=== PATIENT | female | born 1995 ===

== ENCOUNTER 2018-10-10 07:23 | Inpatient (IN) ==
[2018-10-10] MEDS ORDERED: MEPERIDINE 50 MG/1 ML VIAL IV PRN (07:53)
[2018-10-10] MEDS ORDERED: ONDANSETRON 4 MG/2 ML VIAL IV PRN (07:53)
[2018-10-10 08:10] LABS: Basophils % 0.2 % (0.0-0.8); Eosinophils # 0.1 10*3/uL (0.0-0.87); Eosinophils % 0.7 % (0.00-10.9); Hematocrit 34.1 VOL% (35.7-47.0); Immature Granulocytes % 0.7 %; Immature Granulocytes Absolute 0.06 #; Lymphocytes # 1.6 10*3/uL (1.4-4.0); Lymphocytes % 19.2 % (21.3-54.2); Mean Corpuscular HGB Conc 32.3 GM/DL (32-36); Mean Corpuscular Hemoglobin 26 PG (27-34); Mean Corpuscular Volume 80.6 FL (87-102); Mean Platelet Volume 11.2 FL (9.6-12.0); Monocytes # 0.4 10*3/uL (0.11-0.8); Neutrophils # 6.1 10*3/uL (1.4-7.4); Neutrophils % 74.2 % (38.7-73.9); Platelet Count 191 T/CUMM (130-400); Red Blood Count 4.23 MC/CUMM (3.8-5.5); Red Cell Distribution Width 14.1 % (9.3-17.3); White Blood Count 8.2 T/CUMM (4-12)
[2018-10-10] MEDS ORDERED: DINOPROSTONE VAG GEL 10 MG SYRINGE VAG ONE (08:31)
[2018-10-10 08:45] LABS: Alanine Aminotransferase 13 U/L (13-56); Albumin 2.5 G/DL (3.4-5.0); Alkaline Phosphatase 215 U/L (45-117); Aspartate Amino Transferase 13 U/L (0-37); Bilirubin,Total < 0.39 MG/DL (0.2-1.0); Blood Urea Nitrogen 9 MG/DL (7-18); Calcium 8.1 MG/DL (8.5-10.1); Glucose 91 MG/DL (74-106); Osmolality,Calculated 277.4 MOS/KG (273-304); Potassium 3.7 MMOL/L (3.5-5.1); Sodium 140 MMOL/L (136-145); Total Protein 7.3 G/DL (6.4-8.3); Uric Acid 3.5 MG/DL (2.6-6.0)
[2018-10-10] MEDS: LACTATED RINGERS 1,000 ML IV SCH ×2 (08:57→09:47)
[2018-10-10] MEDS ORDERED: ACETAMINOPHEN 325 MG TABLET PO ONE (09:10)
[2018-10-10] MEDS ORDERED: OXYTOCIN/LR 20 UNIT/1,000 ML BAG IV SCH (15:00)
[2018-10-10] MEDS ORDERED: PROMETHAZINE 25 MG/1 ML VIAL IM ONE (17:16)
[2018-10-10] MEDS ORDERED: CITRIC ACID/SODIUM CITRATE 30 ML UDCUP PO ONE (17:16)
[2018-10-10] MEDS ORDERED: ePHEDrine 50 MG/ML AMP IV PRN (17:16)
[2018-10-10] MEDS ORDERED: FAMOTIDINE 20 MG/2 ML VIAL IV ONE (17:16)
[2018-10-10] MEDS ORDERED: diphenhydrAMINE 50 MG/1 ML VIAL IV PRN (17:16)
[2018-10-10] MEDS ORDERED: NALOXONE 0.4 MG/ML VIAL IV PRN (17:16)
[2018-10-10] MEDS ORDERED: hydrOXYzine HCL 25 MG/1 ML VIAL IM PRN (17:16)
[2018-10-10] MEDS: fentaNYL 2 MCG/ROPIV 0.2% EPID 100 ML EPIDURAL SCH (18:10)
[2018-10-10 19:49] LABS: Apearance,Urine Slightly Hazy (Clear); Bilirubin,Urine Negative (Negative); Blood, Urine Negative (Negative); Glucose,Urine (UA) Negative (Negative); Ketones,Urine 20 mg/dL (Negative); Mucus,Urine Few /LPF (Occasional); Nitrite,Urine Negative (Negative); Protein,Urine 30 MG/DL; RBC,Urine <1 /HPF (0-4); Squamous Epithelial Cell,Urine Occasional /HPF (0-10); Urine Color Yellow (Yellow); Urine Specific Gravity 1.025 (1.001-1.035); WBC,Urine 1 /HPF (0-6)
[2018-10-11] MEDS: fentaNYL 2 MCG/ROPIV 0.2% EPID 100 ML EPIDURAL SCH ×3 (01:39→12:55)
[2018-10-11] MEDS: LACTATED RINGERS 1,000 ML IV SCH ×2 (06:01→16:28)
[2018-10-11] MEDS: hydrALAZINE 20 MG/1 ML VIAL IV SCH ×2 (08:48→09:00)
[2018-10-11] MEDS ORDERED: OXYTOCIN/LR 30 UNIT/1,000 ML BAG IV ONE (16:08)
[2018-10-11] MEDS ORDERED: OXYTOCIN 10 UNIT/ML VIAL IM ONE (16:08)
[2018-10-11] MEDS ORDERED: ceFAZolin 3,000 MG in SYRINGE 1 EACH IV ONE (16:11)
[2018-10-11] MEDS ORDERED: MORPHINE 10 MG/10 ML VIAL ONE (16:24)
[2018-10-11] MEDS ORDERED: KETOROLAC 60 MG/2 ML VIAL IM ONE (16:24)
[2018-10-11] MEDS ORDERED: LIDOCAINE MPF 2% /EPI 20 ML VIAL ONE (16:24)
[2018-10-11] MEDS ORDERED: CARBOPROST TROMETHAMINE 250 MCG/ML AMP IM ONE (16:59)
[2018-10-11] MEDS ORDERED: PHENYLEPHRINE 1 MG/10 ML SYRINGE IV ONE (17:45)
[2018-10-11] MEDS ORDERED: guaiFENesin/CODEINE 5 ML LIQUID PO PRN (18:03)
[2018-10-11 18:10] LABS: Cord Arterial Blood HCO3 20.2 MMOL/L
[2018-10-11 18:14] LABS: Cord Venous Blood HCO3 20.4 MMOL/L; Cord Venous Blood PCO2 44.1 MMHG; Cord Venous Blood PO2 20.8
[2018-10-11] MEDS ORDERED: RHO(D) IMMUNE GLOBULIN 300 MCG SYRINGE IM ONE (18:34)
[2018-10-11] MEDS ORDERED: OXYTOCIN/LR 20 UNIT/1,000 ML BAG IV ONE (18:34)
[2018-10-11] MEDS ORDERED: ONDANSETRON 4 MG/2 ML VIAL IV PRN (18:34)
[2018-10-11] MEDS ORDERED: ACETAMINOPHEN 325 MG TABLET PO PRN (18:34)
[2018-10-11] MEDS ORDERED: LACTATED RINGERS 1,000 ML IV SCH (19:00)
[2018-10-11] MEDS ORDERED: diphenhydrAMINE 50 MG/1 ML VIAL IV PRN (21:52)
[2018-10-11] MEDS: FLUTICASONE 50 MCG NASAL SPRAY 16 GM BOTTLE BOTH NARES SCH (22:01)
[2018-10-11] MEDS: DOCUSATE SODIUM 100 MG CAPSULE PO SCH (22:33)
[2018-10-12] MEDS: ceFAZolin 1,000 MG in SYRINGE 1 EACH IV SCH ×2 (00:44→09:05)
[2018-10-12] MEDS ORDERED: hydrOXYzine HCL 25 MG/1 ML VIAL IM PRN (00:45)
[2018-10-12 02:39] LABS: Basophils % 0.2 % (0.0-0.8); Eosinophils % 0.1 % (0.00-10.9); Hematocrit 28.2 VOL% (35.7-47.0); Hemoglobin 8.9 GM/DL (12.0-16.0); Immature Granulocytes % 0.8 %; Immature Granulocytes Absolute 0.07 #; Lymphocytes % 11.6 % (21.3-54.2); Mean Corpuscular HGB Conc 31.6 GM/DL (32-36); Mean Corpuscular Hemoglobin 26 PG (27-34); Mean Platelet Volume 11.8 FL (9.6-12.0); Monocytes # 0.5 10*3/uL (0.11-0.8); Monocytes % 5.4 % (1.7-12.7); Neutrophils # 7.3 10*3/uL (1.4-7.4); Neutrophils % 81.9 % (38.7-73.9); Platelet Count 153 T/CUMM (130-400); Red Blood Count 3.48 MC/CUMM (3.8-5.5); White Blood Count 8.9 T/CUMM (4-12)
[2018-10-12] MEDS: DOCUSATE SODIUM 100 MG CAPSULE PO SCH ×2 (09:00→20:27)
[2018-10-12] MEDS: SIMETHICONE CHEW 80 MG TABLET PO PRN (09:00)
[2018-10-12] MEDS: MAGNESIUM HYDROXIDE SUSP 30 ML UDCUP PO PRN ×2 (09:00→20:28)
[2018-10-12] MEDS: MULTIVITAMIN (PRENATAL) TABLET PO SCH (09:00)
[2018-10-12] MEDS: FLUTICASONE 50 MCG NASAL SPRAY 16 GM BOTTLE BOTH NARES SCH (09:12)
[2018-10-12] MEDS: METOCLOPRAMIDE 10 MG/2 ML VIAL IV SCH ×2 (09:12→16:55)
[2018-10-12 12:24] LABS: Basophils % 0.1 % (0.0-0.8); Eosinophils % 0.4 % (0.00-10.9); Hematocrit 28.6 VOL% (35.7-47.0); Hemoglobin 9.1 GM/DL (12.0-16.0); Immature Granulocytes % 0.8 %; Immature Granulocytes Absolute 0.06 #; Lymphocytes # 1.3 10*3/uL (1.4-4.0); Lymphocytes % 17.8 % (21.3-54.2); Mean Corpuscular HGB Conc 31.8 GM/DL (32-36); Mean Corpuscular Hemoglobin 26 PG (27-34); Mean Corpuscular Volume 81.3 FL (87-102); Mean Platelet Volume 11.4 FL (9.6-12.0); Monocytes # 0.5 10*3/uL (0.11-0.8); Monocytes % 6.5 % (1.7-12.7); Neutrophils # 5.5 10*3/uL (1.4-7.4); Neutrophils % 74.4 % (38.7-73.9); Platelet Count 150 T/CUMM (130-400); Red Blood Count 3.52 MC/CUMM (3.8-5.5); Red Cell Distribution Width 14.1 % (9.3-17.3); White Blood Count 7.4 T/CUMM (4-12)
[2018-10-12] MEDS: METOCLOPRAMIDE 10 MG TABLET PO PRN (23:21)
[2018-10-13] MEDS: IBUPROFEN 800 MG TABLET PO PRN ×2 (04:13→13:47)
[2018-10-13] MEDS: ALBUTEROL 1.25 MG/3 ML NEB RESP TX SCH ×2 (05:01→08:52)
[2018-10-13] MEDS: MAGNESIUM HYDROXIDE SUSP 30 ML UDCUP PO PRN (09:13)
[2018-10-13] MEDS: SIMETHICONE CHEW 80 MG TABLET PO PRN (09:13)
[2018-10-13] MEDS: METOCLOPRAMIDE 10 MG TABLET PO PRN (09:13)
[2018-10-13] MEDS: FLUTICASONE 50 MCG NASAL SPRAY 16 GM BOTTLE BOTH NARES SCH (09:14)
[2018-10-13] MEDS: DOCUSATE SODIUM 100 MG CAPSULE PO SCH (09:16)
[2018-10-13] MEDS: MULTIVITAMIN (PRENATAL) TABLET PO SCH (09:20)
[2018-10-13 11:40] VITALS: BP 147/74
== END 2018-10-13 15:15 | disposition home or self-care (01) | DRG 540 ==
LOC: N.LDOUT 07:23 → N.LD 07:25 → N.OB 10-11 21:30
PROVIDERS: ADMIT Obstetrics & Gynecology; ATTEND Obstetrics & Gynecology
PROC: LDCSECT (ICD-10-PCS; 2018-10-11 17:20)

== ENCOUNTER 2019-12-31 04:54 | Inpatient (IN) ==
[2019-12-31] MEDS ORDERED: LACTATED RINGERS 1,000 ML IV ONE (05:28)
[2019-12-31 06:01] LABS: Basophils % 0.2 % (0.0-0.8); Hematocrit 29.3 VOL% (35.7-47.0); Hemoglobin 9.1 GM/DL (12.0-16.0); Immature Granulocytes % 0.9 %; Immature Granulocytes Absolute 0.04 #; Lymphocytes # 0.2 10*3/uL (1.4-4.0); Lymphocytes % 4.7 % (21.3-54.2); Mean Corpuscular HGB Conc 31.1 GM/DL (32-36); Mean Corpuscular Volume 78.3 FL (87-102); Mean Platelet Volume 10.7 FL (9.6-12.0); Monocytes % 1.2 % (1.7-12.7); NRBC # 0.03 10*3/uL; Platelet Count 161 T/CUMM (130-400); Red Blood Count 3.74 MC/CUMM (3.8-5.5); Red Cell Distribution Width 15.8 % (9.3-17.3); White Blood Count 4.3 T/CUMM (4-12)
[2019-12-31 06:09] LABS: Apearance,Urine Slightly Hazy (Clear); Bacteria,Urine Occasional /HPF (Few); Bilirubin,Urine Negative (Negative); Blood, Urine Negative (Negative); Glucose,Urine (UA) Negative (Negative); Ketones,Urine 20 mg/dL (Negative); Mucus,Urine Occasional /LPF (Occasional); Nitrite,Urine Negative (Negative); Protein,Urine 30 MG/DL; RBC,Urine 2 /HPF (0-4); Squamous Epithelial Cell,Urine Few /HPF (0-10); Urine Color Yellow (Yellow); Urine Specific Gravity 1.018 (1.001-1.035); Urine Urobilinogen < 2.0 EU/DL (0.2-1.0); WBC,Urine 4 /HPF (0-6)
[2019-12-31 06:50] LABS: Band Neutrophils 2 % (0-10); Hypochromasia 1+; Lymphocytes 4 % (20-55); Ovalocytes Slight; Platelet Estimate Adequate; Segmented Neutrophils 92 % (50-85); Total Cells Counted 100
[2019-12-31] MEDS ORDERED: ceFAZolin 3,000 MG in SYRINGE 1 EACH IV ONE (07:54)
[2019-12-31] MEDS ORDERED: CITRIC ACID/SODIUM CITRATE 30 ML UDCUP PO ONE (07:54)
[2019-12-31] MEDS ORDERED: FAMOTIDINE 20 MG/2 ML VIAL IV ONE (07:54)
[2019-12-31] MEDS ORDERED: OXYTOCIN/LR 30 UNIT/1,000 ML BAG IV ONE (07:58)
[2019-12-31] MEDS ORDERED: OXYTOCIN 10 UNIT/ML VIAL IM ONE (07:58)
[2019-12-31] MEDS ORDERED: LACTATED RINGERS 1,000 ML IV SCH ×2 (08:00→10:00)
[2019-12-31] MEDS ORDERED: PHENYLEPHRINE 1 MG/10 ML SYRINGE IV ONE (09:50)
[2019-12-31] MEDS ORDERED: MORPHINE 10 MG/10 ML VIAL ONE (09:51)
[2019-12-31] MEDS ORDERED: OXYTOCIN/LR 20 UNIT/1,000 ML BAG IV ONE (09:54)
[2019-12-31] MEDS ORDERED: SODIUM CHLORIDE 0.9% 100 ML IV ONE (09:54)
[2019-12-31] MEDS ORDERED: PHENYLEPHRINE 10 MG/1 ML VIAL IV ONE (09:54)
[2019-12-31] MEDS ORDERED: ACETAMINOPHEN 325 MG TABLET PO PRN (09:54)
[2019-12-31] MEDS ORDERED: RHO(D) IMMUNE GLOBULIN 300 MCG SYRINGE IM ONE (09:54)
[2019-12-31] MEDS ORDERED: MAGNESIUM HYDROXIDE SUSP 30 ML UDCUP PO PRN (09:54)
[2019-12-31] MEDS ORDERED: methylPREDNISolone SOD SUC 125 MG/2 ML VIAL ONE (09:54)
[2019-12-31] MEDS ORDERED: SIMETHICONE CHEW 80 MG TABLET PO PRN (09:54)
[2019-12-31] MEDS ORDERED: ONDANSETRON 4 MG/2 ML VIAL IV PRN (09:54)
[2019-12-31 09:57] LABS: Cord Arterial Blood HCO3 7.4 MMOL/L; Cord Venous Blood HCO3 11.9 MMOL/L; Cord Venous Blood PCO2 57.2 MMHG; Cord Venous Blood PO2 13.8 MMHG
[2019-12-31] MEDS ORDERED: BUPIVACAINE SPINAL 0.75% 2 ML AMP SPINAL ONE (09:59)
[2019-12-31 10:01] LABS: Apearance,Urine Slightly Hazy (Clear); Bacteria,Urine Occasional /HPF (Few); Bilirubin,Urine Negative (Negative); Blood, Urine Negative (Negative); Glucose,Urine (UA) Negative (Negative); Ketones,Urine 20 mg/dL (Negative); Mucus,Urine Occasional /LPF (Occasional); Nitrite,Urine Negative (Negative); Protein,Urine 30 MG/DL; RBC,Urine 1 /HPF (0-4); Squamous Epithelial Cell,Urine Occasional /HPF (0-10); Urine Color Amber (Yellow); Urine Specific Gravity 1.019 (1.001-1.035); WBC,Urine 5 /HPF (0-6)
[2019-12-31] MEDS ORDERED: diphenhydrAMINE CAP 25 MG CAPSULE PO PRN (12:46)
[2019-12-31] MEDS ORDERED: ONDANSETRON 4 MG/2 ML VIAL ONE (13:02)
[2019-12-31] MEDS ORDERED: diphenhydrAMINE CAP 25 MG CAPSULE PO SCH (14:00)
[2019-12-31] MEDS ORDERED: ceFAZolin 1,000 MG in SYRINGE 1 EACH IV SCH (17:00)
[2019-12-31] MEDS ORDERED: ceFAZolin 2,000 MG in PREMIX 1 EACH IV ONE (18:00)
[2019-12-31 18:04] LABS: Basophils % 0.1 % (0.0-0.8); Hematocrit 27.2 VOL% (35.7-47.0); Hemoglobin 8.5 GM/DL (12.0-16.0); Immature Granulocytes % 1.8 %; Lymphocytes # 0.6 10*3/uL (1.4-4.0); Lymphocytes % 3.4 % (21.3-54.2); Mean Corpuscular HGB Conc 31.3 GM/DL (32-36); Mean Corpuscular Volume 77.9 FL (87-102); Mean Platelet Volume 10.6 FL (9.6-12.0); Monocytes % 1.6 % (1.7-12.7); NRBC # 0.02 10*3/uL; Neutrophils % 93.1 % (38.7-73.9); Platelet Count 152 T/CUMM (130-400); Red Blood Count 3.49 MC/CUMM (3.8-5.5); Red Cell Distribution Width 16.1 % (9.3-17.3); White Blood Count 16.7 T/CUMM (4-12)
[2019-12-31 19:09] LABS: Anisocytosis 1+; Band Neutrophils 2 % (0-10); Hypochromasia Slight; Lymphocytes 5 % (20-55); Microcytosis 1+; Platelet Estimate Adequate; Segmented Neutrophils 91 % (50-85); Total Cells Counted 100
[2019-12-31] MEDS: DOCUSATE SODIUM 100 MG CAPSULE PO SCH (20:33)
[2019-12-31] MEDS: IBUPROFEN 800 MG TABLET PO PRN (22:53)
[2020-01-01] MEDS ORDERED: ceFAZolin 3,000 MG in SYRINGE 1 EACH IV SCH (02:00)
[2020-01-01 06:16] LABS: Basophils % 0.2 % (0.0-0.8); Hematocrit 25.7 VOL% (35.7-47.0); Immature Granulocytes % 1.1 %; Immature Granulocytes Absolute 0.16 #; Lymphocytes % 6.6 % (21.3-54.2); Mean Corpuscular HGB Conc 31.1 GM/DL (32-36); Mean Corpuscular Volume 78.4 FL (87-102); Mean Platelet Volume 11.1 FL (9.6-12.0); Monocytes % 5.8 % (1.7-12.7); NRBC # 0.03 10*3/uL; Neutrophils % 86.3 % (38.7-73.9); Platelet Count 162 T/CUMM (130-400); Red Blood Count 3.28 MC/CUMM (3.8-5.5); Red Cell Distribution Width 16.1 % (9.3-17.3); White Blood Count 15.1 T/CUMM (4-12)
[2020-01-01 06:37] LABS: Band Neutrophils 4 % (0-10); Lymphocytes 3 % (20-55); Segmented Neutrophils 90 % (50-85); Total Cells Counted 100
[2020-01-01 06:38] LABS: Anisocytosis 1+; Hypochromasia 1+; Microcytosis 1+; Ovalocytes Slight; Platelet Estimate Adequate
[2020-01-01] MEDS ORDERED: METOCLOPRAMIDE 10 MG TABLET PO SCH (09:00)
[2020-01-01] MEDS: MAGNESIUM HYDROXIDE SUSP 30 ML UDCUP PO SCH ×2 (09:20→21:12)
[2020-01-01] MEDS: METOCLOPRAMIDE 10 MG TABLET PO SCH ×3 (09:50→23:22)
[2020-01-01] MEDS: MULTIVITAMIN (PRENATAL) TABLET PO SCH (09:51)
[2020-01-01] MEDS: FERROUS SULFATE 325 MG TABLET PO SCH ×2 (09:51→21:04)
[2020-01-01] MEDS: DOCUSATE SODIUM 100 MG CAPSULE PO SCH ×2 (09:51→21:04)
[2020-01-01] MEDS: CLINDAMYCIN INJ 600 MG in PREMIX 1 EACH IV SCH ×2 (09:53→17:23)
[2020-01-01] MEDS: IBUPROFEN 800 MG TABLET PO PRN (13:41)
[2020-01-02] MEDS: IBUPROFEN 800 MG TABLET PO PRN ×2 (01:41→09:43)
[2020-01-02] MEDS: CLINDAMYCIN INJ 600 MG in PREMIX 1 EACH IV SCH ×3 (01:41→15:10)
[2020-01-02] MEDS ORDERED: INFLUENZA VIRUS VACCINE 0.5 ML SYRINGE IM ONE (08:07)
[2020-01-02] MEDS: FERROUS SULFATE 325 MG TABLET PO SCH (09:43)
[2020-01-02] MEDS: DOCUSATE SODIUM 100 MG CAPSULE PO SCH (09:43)
[2020-01-02] MEDS: MULTIVITAMIN (PRENATAL) TABLET PO SCH (09:43)
[2020-01-02 11:43] VITALS: BP 134/84
[2020-01-02] MEDS: METOCLOPRAMIDE 10 MG TABLET PO SCH (15:55)
== END 2020-01-02 15:40 | disposition home or self-care (01) | DRG 540 ==
LOC: CANPREREF → N.LDOUT 04:54 → N.LD 04:54 → N.OB 12:16
PROVIDERS: ADMIT Obstetrics & Gynecology; ATTEND Obstetrics & Gynecology
PROC: LDCSECT (ICD-10-PCS; 2019-12-31 08:30)

== ENCOUNTER 2021-02-01 11:20 | Inpatient (IN) ==
[2021-02-01] MEDS ORDERED: CITRIC ACID/SODIUM CITRATE 30 ML UDCUP PO ONE (12:04)
[2021-02-01] MEDS ORDERED: FAMOTIDINE 20 MG/2 ML VIAL IV ONE (12:04)
[2021-02-01] MEDS ORDERED: ceFAZolin 3,000 MG in SYRINGE 1 EACH IV ONE (12:04)
[2021-02-01] MEDS: LACTATED RINGERS 1,000 ML IV SCH ×3 (12:12→21:07)
[2021-02-01] MEDS ORDERED: OXYTOCIN 10 UNIT/ML VIAL IM ONE (12:17)
[2021-02-01] MEDS ORDERED: OXYTOCIN/LR 30 UNIT/1,000 ML BAG IV ONE (12:17)
[2021-02-01 12:33] LABS: Basophils % 0.3 % (0.0-0.8); Eosinophils % 0.5 % (0.00-10.9); Hematocrit 29.5 VOL% (35.7-47.0); Hemoglobin 8.8 GM/DL (12.0-16.0); Immature Granulocytes % 1.5 %; Immature Granulocytes Absolute 0.13 #; Lymphocytes # 1.2 10*3/uL (1.4-4.0); Lymphocytes % 14.2 % (21.3-54.2); Mean Corpuscular HGB Conc 29.8 GM/DL (32-36); Mean Corpuscular Volume 76.6 FL (87-102); Mean Platelet Volume 10.5 FL (9.6-12.0); NRBC # 0.03 10*3/uL; Neutrophils % 79.5 % (38.7-73.9); Platelet Count 244 T/CUMM (130-400); Red Blood Count 3.85 MC/CUMM (3.8-5.5); Red Cell Distribution Width 16.9 % (9.3-17.3); White Blood Count 8.6 T/CUMM (4-12)
[2021-02-01] MEDS ORDERED: PHENYLEPHRINE 1 MG/10 ML SYRINGE IV ONE ×3 (12:47→17:52)
[2021-02-01] MEDS ORDERED: BUPIVACAINE SPINAL 0.75% 2 ML AMP SPINAL ONE (12:47)
[2021-02-01] MEDS ORDERED: fentaNYL 100 MCG/2 ML VIAL ONE (12:47)
[2021-02-01] MEDS ORDERED: ONDANSETRON 4 MG/2 ML VIAL ONE (12:47)
[2021-02-01] MEDS ORDERED: MORPHINE 10 MG/10 ML VIAL ONE (12:47)
[2021-02-01 12:48] LABS: Alanine Aminotransferase < 9 U/L (13-56); Albumin 2.5 G/DL (3.4-5.0); Alkaline Phosphatase 204 U/L (45-117); Aspartate Amino Transferase 18 U/L (0-37); Blood Urea Nitrogen 8 MG/DL (7-18); Calcium 8.2 MG/DL (8.5-10.1); Carbon Dioxide 18 MMOL/L (21-32); Estimated Glom Filtration Rate 132 ML/MIN; Glucose 77 MG/DL (74-106); Osmolality,Calculated 269.8 MOS/KG (273-304); Potassium 3.5 MMOL/L (3.5-5.1); Sodium 137 MMOL/L (136-145); Total Protein 7.4 G/DL (6.4-8.2)
[2021-02-01] MEDS ORDERED: miSOPROStoL 200 MCG TABLET ONE (13:45)
[2021-02-01] MEDS ORDERED: TRANEXAMIC ACID 1,000 MG/10 ML VIAL ONE (13:46)
[2021-02-01] MEDS ORDERED: METHYLERGONOVINE 0.2 MG/1 ML AMP ONE (13:46)
[2021-02-01] MEDS ORDERED: CARBOPROST TROMETHAMINE 250 MCG/ML AMP IM ONE (13:46)
[2021-02-01] MEDS ORDERED: SODIUM CHLORIDE 0.9% 0 ML IV ONE (13:47)
[2021-02-01] MEDS ORDERED: KETOROLAC 30 MG/1 ML VIAL ONE (17:20)
[2021-02-01] MEDS ORDERED: ONDANSETRON 4 MG/2 ML VIAL IV PRN ×2 (18:01→19:26)
[2021-02-01] MEDS ORDERED: hydrOXYzine HCL 25 MG/1 ML VIAL IM PRN (18:01)
[2021-02-01] MEDS ORDERED: HYDROmorphone 2 MG/1 ML VIAL IV PRN (18:01)
[2021-02-01] MEDS ORDERED: diphenhydrAMINE 50 MG/1 ML VIAL IV PRN (18:01)
[2021-02-01 18:09] LABS: Cord Venous Blood HCO3 21.6 MMOL/L; Cord Venous Blood PCO2 39.5 MMHG; Cord Venous Blood PO2 22.6 MMHG
[2021-02-01 18:22] LABS: Bacteria,Urine Occasional /HPF (Few); Bilirubin,Urine Negative (Negative); Blood, Urine Negative (Negative); Glucose,Urine (UA) Negative (Negative); Ketones,Urine 5 mg/dL (Negative); Mucus,Urine Few /LPF (Occasional); Nitrite,Urine Negative (Negative); Protein,Urine 100 MG/DL; RBC,Urine 6 /HPF (0-4); Squamous Epithelial Cell,Urine Occasional /HPF (0-10); Urine Appearance CLEAR (Clear); Urine Color Yellow (Yellow); Urine Specific Gravity 1.024 (1.001-1.035); WBC,Urine 14 /HPF (0-6)
[2021-02-01] MEDS ORDERED: OXYTOCIN/LR 20 UNIT/1,000 ML BAG IV ONE ×3 (18:33→19:26)
[2021-02-01] MEDS ORDERED: SODIUM CHLORIDE 0.9% 1,000 ML IV PRN (19:09)
[2021-02-01] MEDS ORDERED: MAGNESIUM HYDROXIDE SUSP 30 ML UDCUP PO PRN (19:26)
[2021-02-01] MEDS ORDERED: ACETAMINOPHEN 325 MG TABLET PO PRN (19:26)
[2021-02-01] MEDS ORDERED: RHO(D) IMMUNE GLOBULIN 300 MCG SYRINGE IM ONE (19:26)
[2021-02-01] MEDS ORDERED: SIMETHICONE CHEW 80 MG TABLET PO PRN (19:26)
[2021-02-01] MEDS ORDERED: LACTATED RINGERS 1,000 ML IV SCH (19:30)
[2021-02-01] MEDS: DOCUSATE SODIUM 100 MG CAPSULE PO SCH (23:20)
[2021-02-02] MEDS: ceFAZolin 1,000 MG in SYRINGE 1 EACH IV SCH ×2 (00:55→09:11)
[2021-02-02] MEDS: KETOROLAC 30 MG/1 ML VIAL IV SCH ×3 (01:02→16:12)
[2021-02-02 06:17] LABS: Basophils % 0.1 % (0.0-0.8); Hematocrit 25.1 VOL% (35.7-47.0); Hemoglobin 7.6 GM/DL (12.0-16.0); Immature Granulocytes % 0.6 %; Immature Granulocytes Absolute 0.07 #; Lymphocytes # 1.3 10*3/uL (1.4-4.0); Lymphocytes % 10.9 % (21.3-54.2); Mean Corpuscular HGB Conc 30.3 GM/DL (32-36); Mean Corpuscular Volume 79.2 FL (87-102); Mean Platelet Volume 10.8 FL (9.6-12.0); Monocytes % 4.5 % (1.7-12.7); NRBC # 0.03 10*3/uL; Neutrophils % 83.9 % (38.7-73.9); Platelet Count 207 T/CUMM (130-400); Red Blood Count 3.17 MC/CUMM (3.8-5.5); White Blood Count 11.4 T/CUMM (4-12)
[2021-02-02] MEDS ORDERED: SODIUM CHLORIDE 0.9% 1,000 ML IV PRN (08:27)
[2021-02-02] MEDS: MULTIVITAMIN (PRENATAL) TABLET PO SCH (09:11)
[2021-02-02] MEDS: DOCUSATE SODIUM 100 MG CAPSULE PO SCH ×2 (09:11→21:03)
[2021-02-02 17:58] LABS: Hematocrit 25.8 VOL% (35.7-47.0); Hemoglobin 7.9 GM/DL (12.0-16.0)
[2021-02-02] MEDS: IBUPROFEN 800 MG TABLET PO PRN (21:03)
[2021-02-02] MEDS ORDERED: METOCLOPRAMIDE 10 MG TABLET PO SCH (21:30)
[2021-02-03] MEDS: IBUPROFEN 800 MG TABLET PO PRN (05:55)
[2021-02-03 06:18] LABS: Hematocrit 23.6 VOL% (35.7-47.0); Hemoglobin 7.4 GM/DL (12.0-16.0)
[2021-02-03] MEDS ORDERED: SODIUM CHLORIDE 0.9% 1,000 ML IV PRN (08:28)
[2021-02-03] MEDS: FERROUS SULFATE 325 MG TABLET PO SCH ×2 (09:01→15:25)
[2021-02-03] MEDS: MULTIVITAMIN (PRENATAL) TABLET PO SCH (09:01)
[2021-02-03] MEDS: DOCUSATE SODIUM 100 MG CAPSULE PO SCH (09:01)
[2021-02-03 12:42] VITALS: BP 138/77
[2021-02-03 14:01] LABS: Hematocrit 26.6 VOL% (35.7-47.0); Hemoglobin 8.2 GM/DL (12.0-16.0)
== END 2021-02-03 17:20 | disposition home or self-care (01) | DRG 540 ==
LOC: N.LD 11:20 → N.OB 22:54
PROVIDERS: ADMIT Obstetrics & Gynecology; ATTEND Obstetrics & Gynecology